=== PATIENT | female | born 1930 | race Caucasian/White ===

== ENCOUNTER → 2016-09-10 | Outpatient (CLI) | payer OTHER ==
[~2016-09-10] MED LIST: ACETAMINOPHEN-1 EAC1 PO; ASPIR 8181 MG PO; BISACODYL SUPP10 MG RECTAL; CALCIUM 600 +1 EAC1 OR; CEPHALEXIN 250250 M1 PO; CEPHALEXIN 250250 MG PO; CIPRO500 MG PO; CIPROFLOXACIN500 M1 PO; CLONIDINE HCL0.3 M3 TRANSDERM; COLACE100 MG PO; CRANBERRY400 MG PO; DIOVAN HCT 1601 EACH PO; ERYTHROMYCIN E3.5 G1; HYDREA500 MG PO; HYDROCHLOROTHIA25 M2 PO; IBUPROFEN 600600 M1 PO; KEFLEX500 MG PO; MAGOX 400400 MG PO; NORVASC10 MG; NORVASC10 MG OR; NORVASC10 MG PO; PAXIL10 MG; PHOSPHA NEUTRAL1 TA1 PO; SENNA PO; TOPROL XL25 MG PO; TYLENOL325 MG PO; VITAMIN D1000 UNI1 PO; [UNRECOGNIZED DRUG - OTHER] OR
== END ==
LOC: RAD 12:56
DX: R05 Cough (principal); R94.31 Abnormal electrocardiogram [ECG] [EKG]

== ENCOUNTER 2017-02-25 12:29 | Emergency (ER) | payer OTHER ==
[~2017-02-25] VITALS: Ht 152.4 cm; Wt 49.4 kg
[2017-02-25 13:38] LABS: URINE BILIRUBIN NEGATIVE (Negative); URINE BLOOD 1+ (Negative); URINE COLOR YELLOW; URINE GLUCOSE-RANDOM* NEGATIVE (Negative); URINE KETONES NEGATIVE (Negative); URINE PROTEIN (DIPSTICK) 2+ (Negative); URINE SPECIFIC GRAVITY 1.015 (1.003-1.035); URINE UROBILINOGEN 0.2 E.U./dl (0.2-1.0)
[2017-02-25 13:41] LABS: URINE LEUKOCYTES-REFLEX 3+ (Negative)
[2017-02-25 13:50] LABS: HEMATOCRIT 32.5 % (37.0-47.0); HEMOGLOBIN 10.4 gm/dL (12.0-15.0); MCH 31.3 pg (26.0-34.0); MCV 97.7 fL (80.0-100.0); RBC 3.33 mil/uL (4.20-5.00); RDW 15.7 % (10.5-14.5); WBC 8.5 thou/uL (4.0-11.0)
[2017-02-25 13:51] LABS: MANUAL DIFF YES
[2017-02-25 14:01] LABS: AMORPHOUS PHOSPHATES Moderate /LPF (None Seen); CASTS None Seen /LPF (None Seen); SQUAMOUS 4-10 Moderate /LPF (0-3); URINE RBC 3-10 Few /HPF (0-2); URINE WBC-REFLEX 6-15 Few /HPF (0-5)
[2017-02-25 14:02] LABS: CALCIUM 9.4 mg/dL (8.5-10.1)
[2017-02-25 14:06] LABS: POTASSIUM 4.9 mmol/L (3.5-5.1)
[2017-02-25 14:12] LABS: ABSOLUTE NEUTROPHILS 6.7 thou/uL (1.4-8.2); TOTAL CELL COUNT 100
[2017-02-25] MEDS ORDERED: KEFLEX500 M1 PO (15:13)
[2017-02-25 15:35] LABS: PLATELET COUNT 395 thou/uL (150-400)
== END 2017-02-25 18:39 | disposition home or self-care (01) ==
LOC: ER 12:29
PROVIDERS: Physician Assistant
DX: K45.8 Other specified abdominal hernia without obstruction or gangrene (principal); N39.0 Urinary tract infection, site not specified; I12.9 Hypertensive chronic kidney disease with stage 1 through stage 4 chronic kidney disease, or unspecified chronic kidney disease; N18.3 Chronic kidney disease, stage 3 (moderate); Z87.440 Personal history of urinary (tract) infections; Z85.3 Personal history of malignant neoplasm of breast; Z90.10 Acquired absence of unspecified breast and nipple; Z87.891 Personal history of nicotine dependence

== ENCOUNTER 2017-04-02 05:36 | Day surgery (SDC) | payer OTHER ==
[~2017-04-02] VITALS: Ht 152.4 cm; Wt 47.2 kg
--- NOTE | ~2017-04-02 | O ---
[facility] [place] [address] OPERATIVE REPORT Name: BONNERCALLY JOHNNIE Room #: [place] [facility] [place].#: [id number] Admission: 04/02/17 Attend Phys: Derick Kim MD, F Discharge: 04/02/17 Date of : [birth year] Report #: [id number] THIS REPORT FOR: //name// CC: Samantha Kim DATE OF SERVICE: 04/02/2017 SURGEON: Derick Kim MD PARTS FACILITATOR: Jeanne Joyner NP PREOPERATIVE DIAGNOSIS: Left inguinal hernia. POSTOPERATIVE DIAGNOSIS: Left inguinal hernia. PROCEDURE: Laparoscopic totally extraperitoneal repair of left inguinal hernia with ProGrip mesh. ANESTHESIA: General endotracheal anesthesia and local anesthetic. ESTIMATED BLOOD LOSS: 5 mL. SPECIMEN: None. COMPLICATIONS: None appreciated. INDICATIONS FOR PROCEDURE: This is an 87-year-old female patient of Dr. Samantha Osborn who was seen in the [facility] several weeks ago with left groin pain. She underwent CT of the abdomen and pelvis showing a left inguinal hernia containing a loop of small bowel with no evidence for a bowel obstruction. She denies a change in her bowel habits. On exam, she was found to have a left inguinal bulge and palpable defect with bowel sounds present within the bulge. The patient presents now for laparoscopic repair of her left inguinal hernia. OPERATIVE FINDINGS: Upon entrance into the left preperitoneal space and after appropriate dissection, the patient was found to have both a direct and indirect left inguinal hernia (pantaloon hernia) with no bowel involvement. The hernia sac present within the left inguinal hernia contained an opening and this required clipping of the hernia sac/peritoneum for closure. A femoral hernia was not seen. The patient had no evidence for a recurrent right inguinal hernia. After placement of the mesh, there was no rippling of the mesh with good medialization and good coverage of the defects. DESCRIPTION OF PROCEDURE IN DETAIL: After the risks, benefits, and expectations [address] [address] OPERATIVE REPORT Name: CALLY BONNER [facility] Room #: [place] [facility] [place].#: [id number] Admission: 04/02/17 Attend Phys: Derick Kim MD, F Discharge: 04/02/17 Date of : [birth year] Report #: [id number] of the operation were discussed in detail with the patient and her daughter, informed consent was obtained. The patient was identified in the preoperative holding area. She was given IV antibiotics as documented in the chart [facility] The patient was then taken to the operating room and she was placed in the supine position. SCDs were placed on the patient's bilateral lower extremities and pneumatic compression was initiated. The patient was then given IV sedation and she was intubated without incident. A Hare catheter was placed. Her abdomen was then prepped and draped in the standard sterile fashion. A time-out was performed to identify the correct patient and procedure. Local anesthetic was infiltrated into the skin and subcutaneous tissue infraumbilically where a small curvilinear incision was made with a #15 blade scalpel. Dissection was carried down to the left anterior rectus sheath fascia. A small transverse opening was made in the fascia and the underlying rectus muscle was identified and swept laterally. The Spacemaker port was then placed within the preperitoneal space and advanced towards the pubic tubercle with gentle sweeping motions. The obturator was removed. The balloon was then inflated under direct visualization with a 0-degree angled laparoscope. After appropriate dissection with the Spacemaker balloon, the balloon was deflated and removed. The cuff was inflated. A 10 mm 30-degree angled laparoscope was then inserted and the preperitoneal space was insufflated to 15 mmHg with carbon dioxide. The patient was placed in the Trendelenburg position. Lower midline 5 mm ports x 2 were placed under direct visualization after local anesthetic was infiltrated into the skin, subcutaneous tissue and appropriately sized incisions were made. The patient was rotated to her right with the left side up. The peritoneum was swept down off of the abdominal wall. Dissection was carried out to identify the peritoneum/hernia sac extending up into an indirect left inguinal defect. The hernia sac was dissected out of the defect and off of the round ligament. Dissection continued medially where a direct defect was also seen. Associated with this defect was peritoneum that contained a chronic opening. The peritoneal defect was closed with a 5 mm clipper with good closure. Continued dissection of the hernia sac off of the round ligament was performed with blunt dissection and judicious use of electrocautery. After adequate dissection, the ProGrip mesh patch was tailored on the backtable, then placed within the preperitoneal space through the Spacemaker port. The mesh was unrolled in a scroll down fashion with the adherent side against the abdominal wall with good coverage of the defect and good medialization of the mesh at the midline. There was no significant rippling of the mesh. The right preperitoneal space was then explored. The peritoneum was dissected off of the abdominal wall and after doing so, there was no evidence for a recurrent right inguinal hernia. Preperitoneal space was then desufflated and the ports were removed. A 5 mm Visiport was placed intraperitoneally through [facility] [address] [place] [address] OPERATIVE REPORT Name: CALLY BONNER Room #: DEP [facility]#: [id number] Admission: 04/02/17 Attend Phys: Derick Kim MD, F Discharge: 04/02/17 Date of : [birth year] Report #: [id number] the infraumbilical incision to desufflate the abdominal cavity. Intraabdominally, the hernia sac was completely dissected out of the defect. The abdominal cavity was desufflated and the port was removed. Interrupted [id number] 0 PDS sutures were then used to close the left anterior rectus sheath fascia incision. Local anesthetic was infiltrated subfascially. All ports were removed. Interrupted subcuticular 4-0 Monocryl sutures and Dermabond were used to close the skin incisions. The patient tolerated the procedure well. She was awakened, extubated, and taken to the recovery room in stable condition with no apparent intraoperative complications. <ELECTRONICALLY SIGNED> By: Derick Kim MD, FACS 04/03/17 1007 1022 1041 Derick Kim MD, FACS /nt
--- NOTE | ~2017-04-02 | EKG ---
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 : 1930 Requested By: Derick Kim Order Number: [id number] MD: Ganesh Arreola Measurements Intervals [place] Rate: 56 P: -18 DC: 238 QRS: -11 QRSD: 94 T: 16 QT: 429 QTc: 415 Interpretive Statements Sinus bradycardia Prolonged DC interval Probable left atrial enlargement Probable anteroseptal infarct, age indeterminate Baseline wander in lead(s) I Compared to ECG 06/13/2015 21:43:54 Atrial premature complex(es) no longer present Electronically Signed On 04-02-2017 8:24:51 [employer] ARCHITECT by Ganesh Arreola [email or web address] <ELECTRONICALLY SIGNED> By: Ganesh Arreola MD, [facility] 04/02/17 0824 [id number] Ganesh Arreola MD, [facility] /EPI
[~2017-04-02 05:36] MED LIST changes: +BIOTIN1 MG PO; +CARVEDILOL3.125 MG PO; +CELLCEPT 250 M250 MG; +FOSAMAX 70 MG T70 MG PO; +IRON325 PO; +KEFLEX500 M1 PO
[2017-04-02 07:20] LABS: CREATININE 1.7 mg/dL (0.6-1.0)
[2017-04-02 08:01] LABS: HEMATOCRIT 28.4 % (37.0-47.0); HEMOGLOBIN 9.5 gm/dL (12.0-15.0); MCH 31.7 pg (26.0-34.0); MCHC 33.4 g/dL (28.0-37.0); MCV 94.7 fL (80.0-100.0); RDW 14.4 % (10.5-14.5)
[2017-04-02] MEDS ORDERED: HYDROCODONE-AP1 EAC6 PO (09:46)
[2017-04-02] MEDS ORDERED: SENNA-S TABLET1 EACH PO (09:46)
== END 2017-04-02 14:30 | disposition home or self-care (01) ==
LOC: TBA 05:36 → OR 05:36
PROVIDERS: Surgery
DX: K40.90 Unilateral inguinal hernia, without obstruction or gangrene, not specified as recurrent (principal); D64.9 Anemia, unspecified; N28.9 Disorder of kidney and ureter, unspecified; Z88.8 Allergy status to other drugs, medicaments and biological substances; Z79.899 Other long term (current) drug therapy; Z79.82 Long term (current) use of aspirin; Z98.890 Other specified postprocedural states
CPT/HCPCS: 50010; 50101; 50249; 50411; 50455; 50555; 50944; 51824; 52265; 52266; 54118; 54169; 55245; 56524; 56525; 56526; 62110; 62900; 70005

== ENCOUNTER 2018-01-07 10:13 | Emergency (ER) | payer OTHER ==
[~2018-01-07] VITALS: Ht 157.5 cm; Wt 46.3 kg
--- NOTE | ~2018-01-07 | EKG ---
[address] [address] ELECTROCARDIOGRAM REPORT Name: CALLY BONNER [id number] Admission: 01/07/18 Attend Phys: Discharge: 01/07/18 Date of : [birth year] Report #: [id number] THIS REPORT FOR: //name// [facility] Test Date: 2018-01-07 Test Time: 10:49:22 Pat Name: CALLYDAPHNE ELAINEVAN Department: Room: Gender: F [place]: TESHA : 1930 Requested By: Nelli Card Order Number: [id number] MD: Skip Thornton Measurements Intervals [place] Rate: 68 P: 7 ID: [id number] QRS: -12 QRSD: 96 T: 139 QT: 451 QTc: 480 Interpretive Statements Sinus rhythm Atrial premature complex Prolonged ID interval Probable left atrial enlargement Anterior infarct, old Nonspecific T abnormalities, lateral leads Compared to ECG 04/02/2017 06:48:23 Electronically Signed On 01-08-2018 8:16:52 CDT by Skip Thornton [email or web address] <ELECTRONICALLY SIGNED> By: Skip Thornton MD 01/08/18 0816 1049 1049 Skip Thornton MD /EPI
[~2018-01-07 10:13] MED LIST changes: +HYDROCODONE-AP1 EAC6 PO; +SENNA-S TABLET1 EACH PO
[2018-01-07 10:36] LABS: URINE BILIRUBIN NEGATIVE (Negative); URINE BLOOD 1+ (Negative); URINE CLARITY CLOUDY; URINE COLOR YELLOW; URINE GLUCOSE-RANDOM* NEGATIVE (Negative); URINE KETONES NEGATIVE (Negative); URINE NITRITE-REFLEX NEGATIVE (Negative); URINE PROTEIN (DIPSTICK) 2+ (Negative); URINE UROBILINOGEN 0.2 E.U./dl (0.2-1.0)
[2018-01-07 10:40] LABS: URINE LEUKOCYTES-REFLEX 2+ (Negative)
[2018-01-07 10:43] LABS: CASTS None Seen /LPF (None Seen); CRYSTALS None Seen /LPF (None Seen); SQUAMOUS None Seen /LPF (0-3); URINE RBC 0-2 Rare /HPF (0-2); URINE WBC-REFLEX >25 Many /HPF (0-5)
[2018-01-07 11:18] LABS: ABSOLUTE NEUTROPHILS 12.7 thou/uL (1.4-8.2); BASOPHILS 0.3 % (0.0-2.0); HEMATOCRIT 24.3 % (37.0-47.0); LYMPHOCYTES 1.9 % (24.0-44.0); MCH 27.2 pg (26.0-34.0); MCV 82.3 fL (80.0-100.0); MONOCYTES 5.6 % (1.0-8.0); PLATELET COUNT 210 thou/uL (150-400); POLYS 92.2 % (36.0-66.0); RBC 2.95 mil/uL (4.20-5.00); RDW 14.7 % (10.5-14.5); WBC 13.8 thou/uL (4.0-11.0)
[2018-01-07] MEDS ORDERED: AGRYLIN0.5 MG PO (11:33)
[2018-01-07 11:36] LABS: ANION GAP 14 mmol/L (7-16); BUN 56 mg/dL (7-18); CALCIUM 8.9 mg/dL (8.5-10.1); CHLORIDE 98 mmol/L (98-107); CO2 15 mmol/L (21-32); CREATININE 3.6 mg/dL (0.6-1.0); GLUCOSE 125 mg/dL (74-106); POTASSIUM 4.5 mmol/L (3.5-5.1); SODIUM 127 mmol/L (136-145)
[2018-01-07 11:41] LABS: ALBUMIN 2.7 g/dL (3.4-5.0); SGOT 23 U/L (15-37); SGPT 18 U/L (30-65); TOTAL BILIRUBIN 0.3 mg/dL (<0.1-1.0); TOTAL PROTEIN 6.2 g/dL (6.4-8.2); TROPONIN-I <0.06 ng/mL (<0.06)
== END 2018-01-07 14:18 | disposition short-term general hospital (02) ==
LOC: ER 10:13
PROVIDERS: Nurse Practitioner Family
DX: S22.42XA Multiple fractures of ribs, left side, initial encounter for closed fracture (principal); A41.9 Sepsis, unspecified organism; I12.9 Hypertensive chronic kidney disease with stage 1 through stage 4 chronic kidney disease, or unspecified chronic kidney disease; N18.4 Chronic kidney disease, stage 4 (severe); D63.1 Anemia in chronic kidney disease; N17.9 Acute kidney failure, unspecified; E86.0 Dehydration; E87.1 Hypo-osmolality and hyponatremia; N39.0 Urinary tract infection, site not specified; Z85.3 Personal history of malignant neoplasm of breast; Z90.710 Acquired absence of both cervix and uterus; Z79.899 Other long term (current) drug therapy; Z88.8 Allergy status to other drugs, medicaments and biological substances; Z87.891 Personal history of nicotine dependence; W01.0XXA Fall on same level from slipping, tripping and stumbling without subsequent striking against object, initial encounter; Y93.89 Activity, other specified; Y92.89 Other specified places as the place of occurrence of the external cause; Y99.8 Other external cause status